=== PATIENT | female | born 1955 | race Caucasian/White ===

== ENCOUNTER → 2022-10-08 | Outpatient (CLI) | payer MEDICARE ==
[2022-10-08 13:54] VITALS: BP 175/82; PULSE 80; RESP 16; TEMP 97.3
--- NOTE | 2022-11-06 12:16 | P.HPBAR ---
Bariatric H&P - History & Physicial H&P Date: 10/08/22 History & Physicial: Visit/CC: Band Adj Patient initial contact: Initial weight: 74.389 kg Initial weight in pounds: 164.00 Height: Initial BMI: Last weight: Current weight: 74.389 kg Current weight in pounds: 164.00 Current BMI: [place] body weight (based on NIH guidelines): Excess body weight loss: The patient is a 67 year-old F who presents for Bariatric Assessment. Patient resents today for LAP-BAND adjustment. Patient requests fill of her band. She is hungry and gaining weight. Past Medical History Past Medical History: Hypertension, Osteoarthritis (OA) Additional Past Medical History / Comment(s): kidney disease in remission, History of Any Multi-Drug Resistant Organisms: None Reported Past Surgical History: Appendectomy, Bariatric Surgery, Orthopedic Surgery Additional Past Surgical History / Comment(s): lap band 2007, panniculectomy 2009, left knee arthroscopy Past Anesthesia/Blood Transfusion Reactions: No Reported Reaction Smoking Status: Former smoker Past Alcohol Use History: None Reported Past Drug Use History: None Reported Surgical - Exam Vital Signs Temp Pulse Resp BP 97.3 F L 80 16 175/82 10/08/22 13:36 10/08/22 13:36 10/08/22 13:36 10/08/22 13:36 - General well developed, well nourished, no distress - Eyes normal ocular movement - ENT normal pinna - Respiratory normal expansion - Cardiovascular Rhythm: regular - Abdomen Abdomen: soft, non tender Bariatric Assessment & Plan Plan: Patient's LAP-BAND was adjusted. She had 0.3 mL added to the band. Patient was able to drink without difficulty Bariatric Checklist Checklist: Plan: Checklist: EGD: 1. Hiatal hernia: 2. H. Pylori: HgbA1c: Vitamin D: Smoking: Primary care physician referral: Psychiatry clearance: Cardiology clearance: Sleep study: Diet journal: VTE risk score: VTE risk level: Rehab needs at discharge:
== END ==
LOC: BARWHC3 12:52
PROVIDERS: ATTEND Surgery
DX: E66.01 Morbid (severe) obesity due to excess calories (principal); I10 Essential (primary) hypertension; M19.90 Unspecified osteoarthritis, unspecified site
CPT/HCPCS: 99212

== ENCOUNTER → 2022-10-15 | Outpatient (CLI) | payer MEDICARE ==
[2022-10-15 13:50] VITALS: BP 138/91; PULSE 93; TEMP 98.7; BMI 28.9
--- NOTE | 2022-11-06 11:28 | P.HPBAR ---
Bariatric H&P - History & Physicial H&P Date: 10/15/22 History & Physicial: Visit/CC: lap band adj Patient initial contact: Initial weight: 74.389 kg Initial weight in pounds: 164.00 Height: 5 ft 2 in Initial BMI: 29.9 Last weight: Current weight: 71.668 kg Current weight in pounds: 158.00 Current BMI: 28.9 [place] body weight (based on NIH guidelines): 49.895 kg Excess body weight loss: 11.1% The patient is a 67 year-old F who presents for Bariatric Assessment. Patient presents today for LAP-BAND adjustment. She requesting Fluid Removed for Band. She's Had Some Issues with Dysphagia. Past Medical History Past Medical History: Hypertension, Osteoarthritis (OA) Additional Past Medical History / Comment(s): kidney disease in remission, History of Any Multi-Drug Resistant Organisms: None Reported Past Surgical History: Appendectomy, Bariatric Surgery, Orthopedic Surgery Additional Past Surgical History / Comment(s): lap band 2007, panniculectomy 2009, left knee arthroscopy Past Anesthesia/Blood Transfusion Reactions: No Reported Reaction Smoking Status: Former smoker Surgical - Exam Vital Signs Temp Pulse BP 98.7 F 93 138/91 10/15/22 13:42 10/15/22 13:42 10/15/22 13:42 - General well developed, well nourished, no distress - Eyes PERRL - ENT normal pinna - Neck no masses - Respiratory normal expansion - Cardiovascular Rhythm: regular - Abdomen Abdomen: soft, non tender Bariatric Assessment & Plan Plan: Patient's LAP-BAND was adjusted. She had 0.4 mL removed the band. She'll follow-up in 4 weeks. Bariatric Checklist Checklist: Plan: Checklist: EGD: 1. Hiatal hernia: 2. H. Pylori: HgbA1c: Vitamin D: Smoking: Primary care physician referral: Psychiatry clearance: Cardiology clearance: Sleep study: Diet journal: VTE risk score: VTE risk level: Rehab needs at discharge:
== END ==
LOC: BARWHC3 12:19
PROVIDERS: ATTEND Surgery
DX: E66.01 Morbid (severe) obesity due to excess calories (principal); I10 Essential (primary) hypertension; M19.90 Unspecified osteoarthritis, unspecified site; Z87.891 Personal history of nicotine dependence; Z68.29 Body mass index [BMI] 29.0-29.9, adult; Z46.51 Encounter for fitting and adjustment of gastric lap band
CPT/HCPCS: 99212

== ENCOUNTER → 2022-11-05 | Outpatient (CLI) | payer MEDICARE ==
[2022-11-05 13:04] VITALS: PULSE 86; TEMP 97.7; BMI 29.4
--- NOTE | 2022-11-06 10:25 | P.HPBAR ---
Bariatric H&P - History & Physicial H&P Date: 11/05/22 History & Physicial: Visit/CC: lap band Patient initial contact: Initial weight: 74.389 kg Initial weight in pounds: 164.00 Height: 5 ft 2 in Initial BMI: 29.9 Last weight: Current weight: 72.892 kg Current weight in pounds: 160.70 Current BMI: 29.4 [place] body weight (based on NIH guidelines): 49.895 kg Excess body weight loss: 6.1% The patient is a 67 year-old F who presents for Bariatric Assessment. Patient resents today for LAP-BAND adjustment. She's had no further dysphagia since her LAP-BAND was empty last visit. Patient is gained 3 pounds. Patient denies any dysphagia or GERD. She states her GERD is much improved with her fluid being removed. Past Medical History Past Medical History: Hypertension, Osteoarthritis (OA) Additional Past Medical History / Comment(s): kidney disease in remission, History of Any Multi-Drug Resistant Organisms: None Reported Past Surgical History: Appendectomy, Bariatric Surgery, Orthopedic Surgery Additional Past Surgical History / Comment(s): lap band 2007, panniculectomy 2009, left knee arthroscopy Past Anesthesia/Blood Transfusion Reactions: No Reported Reaction Smoking Status: Former smoker Past Alcohol Use History: None Reported Past Drug Use History: None Reported Surgical - Exam Vital Signs Temp Pulse 97.7 F 86 11/05/22 12:56 11/05/22 12:56 - General well developed, well nourished, no distress - Eyes PERRL - ENT normal pinna - Neck no masses - Respiratory normal expansion - Cardiovascular Rhythm: regular - Abdomen Abdomen: soft, non tender Bariatric Assessment & Plan Plan: Resolving morbid obesity. Patient's GERD has improved since fluid was removed. Patient did not have an adjustment of her band. She'll follow-up in 4 weeks. Bariatric Checklist Checklist: Plan: Checklist: EGD: 1. Hiatal hernia: 2. H. Pylori: HgbA1c: Vitamin D: Smoking: Primary care physician referral: Psychiatry clearance: Cardiology clearance: Sleep study: Diet journal: VTE risk score: VTE risk level: Rehab needs at discharge:
== END ==
LOC: BARWHC3 12:43
PROVIDERS: ATTEND Surgery
DX: E66.01 Morbid (severe) obesity due to excess calories (principal); I10 Essential (primary) hypertension; M19.90 Unspecified osteoarthritis, unspecified site; Z68.29 Body mass index [BMI] 29.0-29.9, adult
CPT/HCPCS: 99212

== ENCOUNTER → 2022-12-10 | Outpatient (CLI) | payer MEDICARE ==
[2022-12-10 13:28] VITALS: BP 136/93; PULSE 99; TEMP 98.1; BMI 29.0
--- NOTE | 2023-01-22 10:01 | P.HPBAR ---
Bariatric H&P - History & Physicial H&P Date: 12/10/22 History & Physicial: Visit/CC: lap band Patient initial contact: Initial weight: 74.389 kg Initial weight in pounds: 164.00 Height: 5 ft 2 in Initial BMI: 29.9 Last weight: Current weight: 72.121 kg Current weight in pounds: 159.00 Current BMI: 29.0 [place] body weight (based on NIH guidelines): 49.895 kg Excess body weight loss: 9.2% The patient is a 67 year-old F who presents for Bariatric Assessment. Patient resents today for LAP-BAND follow-up. She is currently hungry she's requesting a fill of her band. Past Medical History Past Medical History: Hypertension, Osteoarthritis (OA) Additional Past Medical History / Comment(s): kidney disease in remission, History of Any Multi-Drug Resistant Organisms: None Reported Past Surgical History: Appendectomy, Bariatric Surgery, Orthopedic Surgery Additional Past Surgical History / Comment(s): lap band 2007, panniculectomy 2009, left knee arthroscopy Past Anesthesia/Blood Transfusion Reactions: No Reported Reaction Smoking Status: Former smoker Past Alcohol Use History: None Reported Past Drug Use History: None Reported Surgical - Exam Vital Signs Temp Pulse BP 98.1 F 99 136/93 12/10/22 13:15 12/10/22 13:15 12/10/22 13:15 - General well developed, well nourished, no distress - Eyes PERRL - ENT normal pinna - Neck no masses - Respiratory normal expansion - Cardiovascular Rhythm: regular - Abdomen Abdomen: soft, non tender Bariatric Assessment & Plan Plan: Patient's LAP-BAND was adjusted. She has 0.2 mL at the band. She was 2.9 mL in the band. She'll follow-up in 4 weeks. Bariatric Checklist Checklist: Plan: Checklist: EGD: 1. Hiatal hernia: 2. H. Pylori: HgbA1c: Vitamin D: Smoking: Primary care physician referral: Psychiatry clearance: Cardiology clearance: Sleep study: Diet journal: VTE risk score: VTE risk level: Rehab needs at discharge:
== END ==
LOC: BARWHC3 12:39
PROVIDERS: ATTEND Surgery
DX: E66.01 Morbid (severe) obesity due to excess calories (principal); Z46.51 Encounter for fitting and adjustment of gastric lap band; I10 Essential (primary) hypertension; M19.90 Unspecified osteoarthritis, unspecified site; Z68.29 Body mass index [BMI] 29.0-29.9, adult; Z87.891 Personal history of nicotine dependence
CPT/HCPCS: 99212